=== PATIENT | female | born 1985 | race Caucasian/White ===

== ENCOUNTER 2017-02-12 09:24 | Emergency (ER) | payer OTHER ==
[2017-02-12 11:13] LABS: BASOPHIL % 0.1 % (0-2); PLATELET COUNT 149 x10^3mcL (130-400); RED CELL DISTRIBUTION WIDTH 13.9 % (11.5-14.5)
[2017-02-12 11:22] LABS: microscopic required? YES; urine erythrocyte 3+ (NEGATIVE)
[2017-02-12 11:29] LABS: CALCIUM 8.7 mg/dL (8.5-10.1); CARBON DIOXIDE 27.8 mmol/L (21-32); CHLORIDE SERUM 98 mmol/L (98-107); CREATININE SERUM 0.9 mg/dL (0.6-1.0); GFR1 > 60 mL/min; GLUCOSE SERUM 123 mg/dL (74-106); POTASSIUM SERUM 3.6 mmol/L (3.5-5.1); SODIUM SERUM 135 mmol/L (136-145)
[2017-02-12 11:39] LABS: T3 TOTAL 1.21 ng/mL
[2017-02-12 11:41] LABS: ALBUMIN 3.6 g/dL (3.4-5.0); ALKALINE PHOSPHATASE 69 U/L (46-116); ALT/SGPT 251 U/L (14-59); AST/SGOT 145 U/L (15-37); BILIRUBIN TOTAL 0.5 mg/dL (0.20-1.00); C REACTIVE PROTEIN 10.6 mg/dL (<=0.9); TOTAL PROTEIN, SERUM 8.1 g/dL (6.4-8.2)
[2017-02-12 11:43] LABS: CK-MB 0.6 ng/mL (0-3.6)
[2017-02-12 11:49] LABS: FREE T4 1.06 ng/dL (0.76-1.46); FREE THYROXINE INDEX 2.8 ug/dL (1.4-4.5); T4(THYROXINE) 8.7 ug/dL (4.7-13.3)
[2017-02-12 12:03] LABS: ERYTHROCYTE SED RATE 49 mm/hr (0-20)
[2017-02-12 13:18] VITALS: BP 119/69
== END 2017-02-12 13:16 | disposition home or self-care (01) ==
LOC: ED 09:24
PROVIDERS: Specialist
DX: N39.0 Urinary tract infection, site not specified (principal); R11.10 Vomiting, unspecified; J40 Bronchitis, not specified as acute or chronic; E86.0 Dehydration; R07.89 Other chest pain; E11.9 Type 2 diabetes mellitus without complications; Z79.84 Long term (current) use of oral hypoglycemic drugs
CPT/HCPCS: 83880; 84439; J0696; J1885; J2405; J7030